=== PATIENT | male | born 1950 | race Caucasian/White ===

== ENCOUNTER 2019-05-28 05:54 | Day surgery (SDC) ==
--- NOTE | 2019-05-19 10:18 | EKG Report ---
Test Performed on : 05/19/2019 10:15:26 AM Test Reason : PAT Blood Pressure : / mmHG Vent. Rate : 074 BPM Atrial Rate : 074 BPM P-R Int : 148 ms QRS Dur : 096 ms QT Int : 398 ms P-R-T Axes : 068 056 054 degrees QTc Int : 441 ms Normal sinus rhythm. Normal ECG No previous ECGs available Confirmed by Luis Enrique Acosta MD ([id number]) on 05/20/2019 6:14:46 PM
[2019-05-19 10:47] LABS: HEMATOCRIT 47.7 % (42.0-52.0); HEMOGLOBIN 16.2 g/dL (14.0-18.0); MCH 32.4 PG (27-31); MCV 95.4 FL (81-99); MPV 9.7 FL (7.4-10.4); RDW 13.3 % (11.5-14.5); WBC 5.32 X1000 (4.8-10.8)
[2019-05-19 10:52] LABS: INR 0.97; PROTIME 12.9 Seconds (11.0-16.0)
[2019-05-19 10:53] LABS: PTT 26.8 Seconds (22.3-41.8)
[2019-05-19 11:08] LABS: AGAP 9; BUN 17 mg/dL (8-22); CALCIUM 9.3 mg/dL (8.8-10.2); CHLORIDE 110 mmol/L (98-107); COSMO 296; ESTIMATED GFR > 60; GLUCOSE 96 mg/dL (70-104); POTASSIUM 4.6 mmol/L (3.5-5.1); SODIUM 148 mmol/L (136-145); TCO2 29 mmol/L (25-35)
--- NOTE | 2019-05-27 20:20 | HISTORY AND PHYSICAL ---
HISTORY OF PRESENT ILLNESS: A 69-year-old male with clinical stage T1c [place] 3 + 3 prostate adenocarcinoma. He had PSA elevation up to 4.3 in 2018 and underwent biopsy in April of 2018, with volume of the prostate recorded at 21 mL. Pathology revealed [place] 6 prostate adenocarcinoma in 2 out of 12 cores in the right mid and right base, up to 90% of cores involved. He originally decided to proceed with active surveillance, but his PSA slowly isabella up to 7.82 on 04/21/2019. He wants to proceed with robotic prostatectomy. He has a history of ED and has had penile implant placed in 2011, which works well. PAST MEDICAL HISTORY: 1. Erectile dysfunction. 2. Prostate cancer. 3. Hyperlipidemia. PAST SURGICAL HISTORY: 1. Hip replacement. 2. Insertion of inflatable penile prosthesis. 3. Rotator cuff repair. HOME MEDICATIONS: 1. Fish oil. 2. Flomax. 3. Lotrisone cream. 4. Simvastatin. 5. Vitamins. ALLERGIES: No known drug allergies. FAMILY HISTORY: Positive for hypertension, coronary artery disease, and diabetes. SOCIAL HISTORY: Former smoker. Denies alcohol or illicit drug use. PHYSICAL EXAMINATION: GENERAL: No acute distress. HEENT: Normocephalic, atraumatic. PULMONARY: Bilateral breath sounds. ABDOMEN: Soft, nontender, nondistended. : Penile shaft with donor foreskin without lesions or masses noted. Testes descended bilaterally. ASSESSMENT: A 69-year-old male with prostate cancer and rising prostate specific antigen, who desires robotic prostatectomy. We discussed alternative to surgery and he feels strongly about the surgery. We discussed risks of robotic-assisted laparoscopic prostatectomy with nerve sparing, and laparoscopic ureteral suspension including, but not limited to, bleeding, infection, injury to the bladder, injury to adjacent structures, inability to remove all the cancer, erectile dysfunction, intermediate frame tender urinary incontinence, and care home complications such as bladder neck contracture which may require additional interventions in the future. He voiced understanding and wants to proceed. PLAN: Robotic-assisted laparoscopic prostatectomy with laparoscopic urethral suspension. cc: Peña Roldan MD
[2019-05-28] MEDS ORDERED: LR 1,000 ML ONE ×2 (06:04→06:30)
[2019-05-28] MEDS ORDERED: KEFZOL 1 GM/D5W 2 GM/100 ML IVPB ONE (06:04)
[2019-05-28] MEDS ORDERED: MARCAINE 0.25% PF ONE (06:30)
[2019-05-28] MEDS ORDERED: QUELICIN (DOSE) ONE (06:35)
[2019-05-28] MEDS ORDERED: XYLOCAINE-MPF 2% ONE (06:35)
[2019-05-28] MEDS ORDERED: NORCURON ONE (06:35)
[2019-05-28] MEDS ORDERED: STERILE WATER INJ. ONE (06:35)
[2019-05-28] MEDS ORDERED: DIPRIVAN 1% ONE (06:37)
[2019-05-28] MEDS ORDERED: FENTANYL ONE ×3 (07:05→09:36)
[2019-05-28] MEDS ORDERED: OFIRMEV 1000 MG/ISOTONIC SOLN 1,000 MG/100 ML BOTTLE ONE (07:43)
[2019-05-28] MEDS ORDERED: ZOFRAN ONE (07:43)
[2019-05-28] MEDS ORDERED: DECADRON ONE (07:43)
[2019-05-28 08:44] LABS: URINE SOURCE CATH
[2019-05-28 08:55] LABS: UR EPITHELIAL CELLS <10 /HPF (<10); URINE BACTERIA NEGATIVE /HPF; URINE RBC TNTC /HPF (<10); URINE WBC TNTC /HPF (<10)
[2019-05-28 08:57] LABS: BILIRUBIN URINE NEGATIVE (NEGATIVE); BLOOD URINE MODERATE (NEGATIVE); COLOR ORANGE; GLUCOSE URINE NEGATIVE (NEGATIVE); KETONE URINE NEGATIVE (NEGATIVE); LEUKOCYTES URINE SMALL (NEGATIVE); NITRITE URINE POSITIVE (NEGATIVE); PH URINE 6.5; PROTEIN URINE TRACE mg/dL (NEGATIVE); SP GRAVITY URINE 1.021; TURBIDITY URINE HAZY (CLEAR); UROBILINOGEN URINE NORMAL (NORMAL)
[2019-05-28] MEDS ORDERED: ROBINUL ONE (09:24)
[2019-05-28] MEDS ORDERED: NEOSTIGMINE ONE (09:26)
[2019-05-28] MEDS ORDERED: B & O 16A SUPP ONE (09:51)
[2019-05-28] MEDS ORDERED: DEMEROL ONE (10:12)
[2019-05-28] MEDS ORDERED: NS 1,000 ML ONE (10:18)
[2019-05-28] MEDS ORDERED: MORPHINE IV PRN (11:14)
[2019-05-28] MEDS ORDERED: ZOFRAN IV PRN (11:15)
[2019-05-28] MEDS ORDERED: BENADRYL IV PRN (11:15)
[2019-05-28] MEDS ORDERED: NORCO-10 PO PRN (11:15)
[2019-05-28] MEDS ORDERED: SODIUM CHLORIDE 0.9% INJ PRN (11:15)
[2019-05-28] MEDS ORDERED: NORCO-5 PO PRN (11:15)
[2019-05-28] MEDS ORDERED: DITROPAN PO PRN (11:15)
[2019-05-28] MEDS ORDERED: NORCO-7.5 PO PRN (11:15)
[2019-05-28] MEDS ORDERED: LABETALOL IV PRN (11:15)
[2019-05-28] MEDS ORDERED: BENADRYL LIQUID PO PRN (11:15)
[2019-05-28] MEDS ORDERED: PHENERGAN IV PRN (11:15)
[2019-05-28] MEDS ORDERED: PHENERGAN PO PRN (11:15)
[2019-05-28] MEDS ORDERED: DILAUDID IV PRN (11:15)
[2019-05-28] MEDS ORDERED: PHENERGAN PR PRN (11:15)
[2019-05-28] MEDS: NS 1,000 ML IV SCH ×3 (13:47→22:04)
[2019-05-28] MEDS ORDERED: OFIRMEV 1000 MG/ISOTONIC SOLN 1,000 MG/100 ML BOTTLE IV PRN (14:00)
[2019-05-28] MEDS: KEFZOL 2 GM/D5W 2 GM/50 ML IVPB IV SCH (17:21)
[2019-05-28] MEDS ORDERED: FLOVENT 110 MICROGM HFA INH PRN (20:07)
[2019-05-28] MEDS ORDERED: VENTOLIN HFA INH PRN (20:07)
[2019-05-28] MEDS ORDERED: LIPITOR PO SCH (21:00)
[2019-05-28] MEDS: COLACE PO SCH (22:01)
[2019-05-28] MEDS: COREG PO SCH (22:04)
[2019-05-28] MEDS: PERIDEX MT SCH (22:04)
[2019-05-29] MEDS: KEFZOL 2 GM/D5W 2 GM/50 ML IVPB IV SCH ×2 (01:58→08:32)
[2019-05-29 03:38] VITALS: BP 128/80
[2019-05-29] MEDS: NS 1,000 ML IV SCH (06:37)
[2019-05-29 07:29] LABS: HEMATOCRIT 41.7 % (42.0-52.0); HEMOGLOBIN 13.6 g/dL (14.0-18.0); MCH 31.3 PG (27-31); MCHC 32.6 g/dL (33-37); MCV 96.1 FL (81-99); MPV 9.6 FL (7.4-10.4); RBC 4.34 XMIL (4.7-6.1); RDW 13.1 % (11.5-14.5); WBC 7.45 X1000 (4.8-10.8)
[2019-05-29 08:01] LABS: AGAP 8; BUN 17 mg/dL (8-22); CALCIUM 8.4 mg/dL (8.8-10.2); CHLORIDE 110 mmol/L (98-107); COSMO 285; ESTIMATED GFR > 60; GLUCOSE 99 mg/dL (70-104); SODIUM 142 mmol/L (136-145); TCO2 24 mmol/L (25-35)
[2019-05-29] MEDS: COLACE PO SCH (08:32)
[2019-05-29] MEDS: COREG PO SCH (08:32)
[2019-05-29] MEDS: PERIDEX MT SCH (08:32)
[2019-05-29] MEDS ORDERED: PATIENT'S OWN MED PO SCH (09:00)
[2019-05-29] MEDS ORDERED: CENTRUM SILVER PO SCH (09:00)
[2019-05-29] MEDS ORDERED: VITAMIN B-12 PO SCH (09:00)
[2019-05-29] MEDS ORDERED: COZAAR PO SCH (09:00)
[2019-05-29] MEDS ORDERED: NORVASC PO SCH (09:00)
--- NOTE | 2019-05-30 15:03 | OPERATIVE NOTE ---
PROCEDURE DATE: 05/28/2019 SURGEON: Dr. Peña Roldan. PREOPERATIVE DIAGNOSES: 1. Elevated prostate-specific antigen. 2. Prostate adenocarcinoma. POSTOPERATIVE DIAGNOSES: 1. Elevated prostate-specific antigen. 2. Prostate adenocarcinoma. PROCEDURE: Robotic-assisted laparoscopic prostatectomy with laparoscopic urethral suspension. INDICATIONS: A 69-year-old male who has been diagnosed with prostate cancer secondary to elevated PSA in 2018. He originally chose to proceed with active surveillance. His PSA isabella from the 4 range to 7, and he now desires to undergo a robotic prostatectomy. He has had radiation in the past secondary to back fracture. He has also had several pelvic infections after hip arthroplasty including the need to get extensive IV antibiotics and antibiotic beads. FINDINGS: He had extremely adhesive tissues and inflamed tissues in his entire pelvis which made it extremely difficult to isolate the prostate. Watertight vesicourethral anastomosis at 240 mL. DESCRIPTION OF PROCEDURE: After obtaining informed consent, patient was brought to the operating room. Perioperative antibiotics and general endotracheal anesthesia were administered. He was placed in the lithotomy position, prepped and draped in sterile fashion. He has a penile implant, and it was deflated followed by introduction of 18-Nauruan Parra catheter. It would not go easily, and I switched to an 18-Nauruan Coude Parra catheter. Clear urine was returned. 10 mL of sterile water was instilled into the bulb. We then made a small stab incision in his umbilicus, and introduced Veress needle and connected to saline-filled syringe. We confirmed positive drop test followed by aspiration of fluid in the syringe without evidence of blood or GI contents. We then insufflated his pneumoperitoneal pressure to 15 mmHg. This was followed by demarcation of the trocar sites in the standard prostatectomy fashion. Next, 10 mL of 0.25% plain Marcaine were used to anesthetize the trocar sites. This was followed by Bovie electrocautery incision of the skin, and placement of a 12 mm camera trocar followed by insertion of the robotic camera. His pelvic and abdominal cavity were inspected. He did not have significant adhesions. The rest of the trocars were placed under direct vision. He was then placed in steep Trendelenburg position, and the robot was docked. We began by incising his peritoneum approximately 3 cm above the rectum, and identified and isolated and transected the right vas deferens. This was followed by identification and isolation of the right seminal vesicle. I used judicious cautery posterolaterally in order to preserve the neurovascular bundles. We then performed the same thing on the left side. He had very again inflamed and adherent Denonvilliers' fascia, but I was eventually able to develop the presacral space. Attention was then turned to taking down his bladder. His right medial umbilical ligament was somewhat defined. His left medial umbilical ligament was very atrophic appearing. I incised lateral to each medial umbilical ligament which allowed us to drop the bladder again instead of easily the fatty tissue. There were quite a bit of adhesions. I meticulously dissected the bladder and accessed the space of Retzius. On the patient's left side, the reservoir could be seen, and I took care in order to preserve its integrity. Ultimately, we were able to get to the endopelvic fascia which was incised laterally with cold scissors. The contour of the prostate was followed up to its apex. The superficial dorsal venous complex was secured with bipolar electrocautery. Deep dorsal venous complex was secured with 0 V-Loc suture in a bnfrtj-tz-suyln fashion. Puboprostatic ligaments were divided sharply. Attention was then turned to the divided bladder neck. Gentle tugging of the Parra helped us identify the level of bladder neck. This was followed by monopolar cautery through the perivesical tissue and eventually bladder neck to the view. Parra was seen and brought into the field and placed in anterior traction. The bladder neck was dissected circumferentially. We then developed the plane between the prostate and the bladder until vas deferens came into the view. Those were brought out onto the field, and placed in anterior traction. Seminal vesicles were brought out as well. Attention was turned to the right side away from the reservoir and the neurovascular bundles were reflected using Hem O Jass clips. We then dissected posteriorly between the prostate and the rectum. We then carefully reflected neurovascular bundles on the left side using Hem O Jass clips posterolaterally. Eventually, the prostate was free with exception to its apical attachments. Bovie electrocautery was used to cut through the apical attachments, and I performed a partial urethral length given that he did not have any cancer at the apex and biopsy. The prostate was ultimately delivered and placed into EndoCatch bag. The field was irrigated. Decreased pneumoperitoneal pressure showed no evidence of active bleeding. Attention was then turned to Alcon stitch. Three 0 V-Loc suture was used to reapproximate the perivesical and periurethral tissue. We made sure that the needles were away from the reservoir at all times. Those sutures were preserved for future laparoscopic suspension. This was followed by a formal vesicourethral anastomosis with a 3 V-Loc suture in a clockwise and counterclockwise fashion eventually cross-tying the sutures. A fresh 18-Nauruan Parra catheter was introduced with 15 mL in the balloon, and the anastomosis was tested with 240 mL of sterile fluid instilled. There was no evidence of anastomotic leakage. We then performed laparoscopic urethral suspension by using previously placed Alcon sutures and threading them through the periosteum lateral to the midline pubic symphysis. The urethra appeared to suspend nicely. We decreased pneumoperitoneal pressure to 3 mm once again. There was no evidence of active bleeding. The robot was undocked. The supraumbilical incision was extended, and the prostate was delivered. Wound was copiously irrigated. A #1 Maxon suture was used to close the fascia in a running fashion in the supraumbilical wound. A 0 Vicryl suture was used in a miftqm-yh-jdune fashion to close the fascia of the showroom sales assistant trocar site. The wounds were irrigated, and a 4-0 Monocryl suture was used for subcuticular closure followed by application of Covidien adhesive age. He was then extubated and taken to PACU for further recovery after B O suppository was administered. ESTIMATED BLOOD LOSS: 100 mL. COMPLICATIONS: None. SPECIMENS: Labeled as prostate gland. DRAINS: 18-Nauruan Parra catheter. DISPOSITION: To PACU and subsequently to the floor for observation with Parra catheter to gravity drainage. cc: Peña Roldan MD
== END 2019-05-29 09:40 | disposition home or self-care (01) ==
LOC: 4N 05:54 → OR 05:54
PROVIDERS: ATTEND Urology

== ENCOUNTER 2019-06-29 08:26 | Inpatient (IN) ==
[2019-06-29] MEDS ORDERED: NS 1,000 ML IV ONE ×2 (09:19→13:14)
--- NOTE | 2019-06-29 09:40 | Diag Imaging Result Doc PS360 ---
EXAM: CHEST-1 VIEW - 06/29/2019 HISTORY: sepsis protocol, + chills TECHNIQUE: Portable chest one view COMPARISON: None. FINDINGS: Heart size is normal. There is mild prominence of interstitial markings. There is no consolidation, pleural effusion, or pneumothorax identified. IMPRESSION: Nonspecific mild interstitial marking prominence. No discrete pneumonia. Electronically signed by Eber Ortega 06/29/2019 9:38 AM
[2019-06-29 10:02] LABS: URINE SOURCE CLEAN CATCH
[2019-06-29 10:03] LABS: BASO# 0.02 X1000 (0.0-0.2); BASO% 0.2 % (0.0-0.8); EOS# 0.18 X1000 (0.0-0.7); HEMATOCRIT 51.6 % (42.0-52.0); IMM GRAN# 0.02 X1000 (0.0-0.04); IMM GRAN% 0.2 % (0.0-0.5); LYMPH# 0.91 X1000 (1.2-3.4); LYMPH% 10.2 % (20.5-51.1); MCH 30.9 PG (27-31); MCHC 32.9 g/dL (33-37); MCV 93.6 FL (81-99); MONO# 0.25 X1000 (0.11-0.59); MONO% 2.8 % (1.7-9.3); NEUT# 7.53 X1000 (1.4-6.5); NEUT% 84.6 % (42.2-75.2); PLT 158 X1000 (130-400); RBC 5.51 XMIL (4.7-6.1); RDW 12.7 % (11.5-14.5); WBC 8.91 X1000 (4.8-10.8)
--- NOTE | 2019-06-29 10:08 | PROVIDER DOCUMENTATION ---
HPI-General Adult - General Chief Complaint: Fatigue Stated Complaint: CHILLS, BACK PAIN Time Seen by Provider: 06/29/19 08:59 Source: patient Allergies/Adverse Reactions: Patient Allergies Allergy/AdvReac Type Severity Reaction Status Date / Time silk Allergy REMOVES Verified 05/28/19 05:56 SKIN Home Medications: Home Medication List Medication Instructions Recorded Confirmed Last Taken Type Albuterol Sulfate [Proair 1 puff INH PRN PRN 05/19/19 05/28/19 Unknown History Respiclick] Amlodipine [Norvasc] 5 mg PO DAILY 05/19/19 05/19/19 05/27/19 History Atorvastatin Calcium [Lipitor] 20 mg PO DAILY 05/19/19 05/19/19 05/27/19 History Carvedilol 6.25 mg PO BID 05/19/19 05/28/19 05/28/19 04:45 History Cyanocobalamin [Vitamin B-12] 100 mcg PO DAILY 05/19/19 05/19/19 05/27/19 History Fluticasone Propionate 110 INH 1 puff INH PRN PRN 05/19/19 05/28/19 05/28/19 04:45 History [Flovent 110 Microgm Hfa] Glucosamine/D3/Boswellia Opal 1 dose PO DAILY 05/19/19 05/19/19 05/27/19 History [Osteo Bi-Flex Tablet] Losartan Potassium 100 mg PO DAILY 05/19/19 05/19/19 05/27/19 History Multivit-Min/FA/Lycopen/Lutein 1 tab PO DAILY 05/19/19 05/19/19 Unknown History [Centrum Silver Tablet] CephALEXIN [Keflex] 250 mg PO BID #6 cap 05/29/19 Unknown Rx Hydrocodone/Acetaminophen [[place] 1 ea PO TID PRN #10 tab 05/29/19 Unknown Rx 7.5-325 Tablet] Oxybutynin [Ditropan] 5 mg PO TID PRN #15 tab 05/29/19 Unknown Rx - History of Present Illness -Gen Adult Nature of Presenting Problems: Patient is a 69 yom who c/o lower back pain and fatigue x 1 week and chills that began yesterday. Reports prostatectomy due to prostate cancer on 05/28/[address] Roldan. Not on radiation or chemotherapy. States he started Bactrim last week for abdominal cellulitis at his surgical wounds and did not complete it because he did not like the way it made him feel. Has been on Macrobidfor a UTI x 4 days. Denies any other complaints. Review of Systems - Adult - REVIEW OF SYSTEMS - ADULT Constitutional: reports: see HPI, chills Eyes: reports: no symptoms reported Ears, Nose, Mouth & Throat: reports: no symptoms reported Cardiovascular: reports: no symptoms reported Respiratory: reports: no symptoms reported Gastrointestinal: reports: no symptoms reported Genitourinary: reports: see HPI Musculoskeletal: reports: see HPI, back pain Integumentary: reports: see HPI Neurological: reports: no symptoms reported Psychiatric: reports: no symptoms reported Endocrine: reports: no symptoms reported Hematologic/Lymphatic: reports: no symptoms reported Allergic/Immunologic: reports: no symptoms reported All Other Systems: Reviewed and Negative Past History - Adult - PAST MEDICAL HISTORY-ADULT Review of Records: reports: Old Records Reviewed, Nursing Assessment Review, Medications Reviewed, Social history reviewed & non-contributory. Major Childhood Illnesses: reports: denies history Cardiovascular: reports: denies history Respiratory: reports: denies history Gastrointestinal: reports: denies history Genitourinary: reports: cancer (prostate) Musculoskeletal: reports: denies history Neurological: reports: denies history Psychiatric: reports: denies history Endocrine/Immune: reports: denies history Other Conditions: reports: denies history - PRIOR SURGERIES/PROCEDURES Surgical/Procedure History: reports: recent surgery - FAMILY HISTORY Family History: reviewed, not pertinent - SOCIAL HISTORY Smoking: non-smoker Physical Exam-General - PHYSICAL EXAM-ADULT Initial Vital Signs Reviewed: Yes - CONSTITUTIONAL General Appearance: alert, no apparent distress, other (pt shivering during exam). negative: lethargic, slow to respond - EYES Eyes: PERRL/EOMI, pink conjunctivae - HEAD, EARS, NOSE, MOUTH & THROAT HENMT: normocephalic/atraumatic, moist mucous membranes, normal ENT inspection - NECK Neck: full range of motion, supple, normal inspection - RESPIRATORY Respiratory: chest non-tender, lungs clear, normal breath sounds, no pleuratic chest pain, no respiratory distress, no accessory muscle use - CARDIOVASCULAR Cardiovascular: normal peripheral pulses, regular rate, rhythm, no gallop, no murmur - GASTROINTESTINAL (ABDOMEN) Abdominal Exam: normal bowel sounds, non tender, distended. negative: guarding, tenderness - MUSCULOSKELETAL Back Exam: normal inspection, no CVA tenderness Extremity: normal range of motion, non-tender, normal inspection - SKIN Integumentary: normal color, warm/dry, other (3 abdominal incisions noted with mild surrounding erythema surrounding each incision. No exudate.). negative: cyanosis, diaphoresis, jaundice, mottled, pallor - NEUROLOGIC Neurologic: grossly normal, no motor/sensory deficits - PSYCHIATRIC Psych/Mental Status: normal mood/affect, normal thought content, normal thought process, oriented x 3 Progress - PLAN OF CARE/RESULTS Progress/Plan/Lab Results: Vital Signs - 8 hr 06/29/19 08:28 Temperature 98.3 F Pulse Rate 103 H Respiratory Rate 18 Blood Pressure 167/99 O2 Sat by Pulse Oximetry 93 L 06/29/19 08:30 Influenza Screen - Final Nasopharyngeal Laboratory Results - last 24 hr 06/29/19 09:43 Urine Source CLEAN CATCH Orders Category Date Time Status Cardiac Monitoring DIRECTED Care 06/29/19 09:17 Active IV Insertion ORDERED Care 06/29/19 09:17 Completed Notify MD of + Sepsis Screen NOW Care 06/29/19 09:17 Active Notify Physician As Ordered Care 06/29/19 09:17 Active CHEST-1 VIEW [RAD] Stat Exams 06/29/19 09:[address] ABD/PELVIS W/IV CONT ONLY [CT] Stat Exams 06/29/19 09:18 Ordered BLOOD CULTURE [BLDCUL] Stat Lab 06/29/19 09:17 Uncollected CBC WITH DIFF [HEME] Stat Lab 06/29/19 09:45 Results CK PROFILE [SP CHEM] Stat Lab 06/29/19 09:45 Received COMPREHENSIVE METABOLIC PANEL [CHEM] Stat Lab 06/29/19 09:45 Received INFLUENZA SCREEN A/B Stat Lab 06/29/19 08:30 Completed LACTATE, PLASMA [CHEM] Lab 06/29/19 09:45 Received LACTATE, PLASMA [CHEM] Lab 06/29/19 12:30 Uncollected LACTATE, PLASMA [CHEM] Lab 06/29/19 15:30 Uncollected MAGNESIUM [CHEM] Stat Lab 06/29/19 09:45 Received PROTIME WITH INR [COAG] Stat Lab 06/29/19 09:45 Received PTT [COAG] Stat Lab 06/29/19 09:45 Received TROPONIN T HIGH SENSITIVITY Stat Lab 06/29/19 09:45 Received URINALYSIS W/POSS RFLX CULT [URINALYSIS] Stat Lab 06/29/19 09:43 Results 0.9% Sodium Chloride Inj [Ns] 1,000 ml Med 06/29/19 09:19 Active IV 999 mls/hr Oxygen Device Stat Oth 06/29/19 09:17 Active Result Diagrams: 06/29/19 09:45 06/29/19 09:45 - REASSESSMENT Reassessment #1 Time Reassessed: 12:52 Status: improving (Pt feeling better, he is in agreement with admit decision.) - XRAY 1 XRAY Study: Chest ([facility] - [address] [facility] [address] [facility], [address], [place] [address] [facility] - [address] [place] [address] Department of Imaging Patient: JESICA BUTTERFIELDDM Date: 06/29/19#: [id number] : 1950DM Status: REG [facility]#: [id number] Age/Sex: 69/MRoom/Bed: Loc: ED Ordering Physician: Dee Ventura Family Physician: Katlyn York Reason for Procedure: sepsis protocol, + chills Signed EXAM: CHEST-1 VIEW - 06/29/2019 HISTORY: sepsis protocol, + chills TECHNIQUE: Portable chest one view COMPARISON: None. FINDINGS: Heart size is normal. There is mild prominence of interstitial markings. There is no consolidation, pleural effusion, or pneumothorax identified. IMPRESSION: Nonspecific mild interstitial marking prominence. No discrete pneumonia. Electronically signed by Eber Ortega 06/29/2019 9:38 AM 06/29/19 0938 Interpreting Physician: Eber Ortega MD Dictated Date/Time: 06/29/19 0937 cc: Dee Ventura; Katlyn York) - CT/MRI 1 CT Study: Abdomen, Pelvis ([facility] - [address], [address], [place] [address] [facility] - [address] , [place] [address] Department of Imaging Patient: JESICA BUTTERFIELDDM Date: 06/29/19MR#: [id number] : 1950DM Status: REG [facility]#: [id number] Age/Sex: 69/MRoom/Bed: Loc: ED Ordering Physician: Dee Ventura Family Physician: aKtlyn York Reason for Procedure: recent abd sx, distention, incisional erythema ___ Signed EXAM: CT ABD/PELVIS W/IV CONT ONLY - 06/29/2019 HISTORY: recent abd sx, distention, incisional erythema TECHNIQUE: CT abdomen/pelvis with intravenous contrast COMPARISON: None. FINDINGS: There are two hepatic cysts which measure 2.2 cm and 0.8 cm, respectively. There are no other substantial abnormalities of the liver, spleen, adrenal glands, or pancreas identified. There are no calcified gallstones or pericholecystic inflammation identified. There are right renal cysts, largest of which arises from the lower kidney and measures 9.4 cm. There are small left renal cysts. There is an 11 mm stone in the right renal pelvis. There is no substantial right hydronephrosis. There is an 11 mm stone at the left ureteropelvic junction. There is moderate left hydronephrosis. There are nonspecific small retroperitoneal lymph nodes. There are no substantially enlarged lymph nodes identified. There are lumbar spine degenerative changes noted. There is no evidence of bowel obstruction. There is colonic diverticulosis. There is no evidence of diverticulitis. There is no free air, substantial free fluid, or abscess identified. There are streak artifacts from metallic hip prosthesis which substantially limit detail at the pelvis. There is reservoir of penile prosthesis at the left pelvis. There is no discrete pelvic mass or abnormal fluid collection identified. IMPRESSION: 11 mm stone in right renal pelvis. No substantial right hydronephrosis. 11 mm stone at left ureteropelvic junction, with moderate left hydronephrosis. Colonic diverticulosis. No evidence of diverticulitis. This exam was performed using automated exposure control, adjustment of mA or kV according to patient size, and/or use of iterative reconstruction technique. Electronically signed by Eber Ortega 06/29/2019 11:59 AM 06/29/19 1159 Interpreting Physician: Eber Ortega MD Dictated Date/Time: 06/29/19 1151 cc: Dee Ventura; Katlyn York) - CONSULTS/PCP/HOSPITALIST Notification #1 *Consult/PCP/Hospitalist*: CIELO Bowden ANCILLARY SERVICES MANAGER Time Discussed: 12:49 Reason/Comments: admission- kidney stones, UTI, fever, renal insufficiency Consult Disposition: Admit ([facility] accepted admit, requests that I place urology consult.) #2 Consult: Dr. Rosairo Time Discussed: 12:52 Reason/Comments: kidney stones, renal insufficiency, fever, UTI Consult Disposition: Admit (States to admit to [facility] and consult him) Departure - Departure Date of Disposition Decision: 06/29/19 Time of Disposition Decision: 12:49 DIAGNOSIS: Hepatic cyst, Kidney stones, Renal cyst, Renal insufficiency Disposition: ADMITTED INPATIENT 09 Certified Medical Emergency: Emergent Condition: Stable Referrals and Follow-Ups: Katlyn York [Primary Care Provider] - - Critical Care Note This patient required my direct & personal management of CC.: No Attestation - Physician/ CHIKA Attestation Patient care was provided by Advanced Practice Provider:: Yes Advanced Practice Provider:: Dee Ventura Advanced Practice Provider documentation review:: The Mid-level provider documentation, treatment plan and medical decision making was reviewed by the physician who agrees with all treatment and medical decision making by the P. The physician spent face to face time with patient:: No Advanced Practice Provider documentation review:: Supervising physician onsite and consulted in the evaluation and care of this patient. The physician did not have a face to face encounter with the patient.
[2019-06-29 10:12] LABS: BILIRUBIN URINE NEGATIVE (NEGATIVE); BLOOD URINE MODERATE (NEGATIVE); COLOR YELLOW; GLUCOSE URINE NEGATIVE (NEGATIVE); KETONE URINE TRACE mg/dL (NEGATIVE); LEUKOCYTES URINE MODERATE (NEGATIVE); NITRITE URINE NEGATIVE (NEGATIVE); PROTEIN URINE 100 mg/dL (NEGATIVE); SP GRAVITY URINE 1.029; TURBIDITY URINE HAZY (CLEAR); UROBILINOGEN URINE 2 mg/dL (NORMAL)
[2019-06-29 10:13] LABS: UR EPITHELIAL CELLS <10 /HPF (<10); URINE BACTERIA 1+ /HPF; URINE RBC TNTC /HPF (<10); URINE WBC TNTC /HPF (<10)
[2019-06-29 10:31] LABS: INR 1.04; PROTIME 13.7 Seconds (11.0-16.0); PTT 24.9 Seconds (22.3-41.8)
[2019-06-29] MEDS ORDERED: ROCEPHIN 2 GM in NS 50 ML IV ONE (10:42)
[2019-06-29 10:43] LABS: ALB/GLOB RATIO 1.5; ALBUMIN 4.7 g/dL (3.5-5.0); CALCIUM 9.9 mg/dL (8.8-10.2); CREATININE 1.6 mg/dL (0.7-1.2); MAGNESIUM 2.2 mg/dL (1.5-2.7); POTASSIUM 5.1 mmol/L (3.5-5.1); TOTAL BILIRUBIN 1.02 mg/dL (0.20-1.00); TOTAL PROTEIN 7.9 g/dL (6.3-8.3)
[2019-06-29 11:08] LABS: CK INDEX 1.1 (0.0-2.5); CK-MB 2.26 ng/mL (0.0-5.0)
[2019-06-29] MEDS ORDERED: TYLENOL PO ONE (11:38)
--- NOTE | 2019-06-29 12:02 | Diag Imaging Result Doc PS360 ---
EXAM: CT ABD/PELVIS W/IV CONT ONLY - 06/29/2019 HISTORY: recent abd sx, distention, incisional erythema TECHNIQUE: CT abdomen/pelvis with intravenous contrast COMPARISON: None. FINDINGS: There are two hepatic cysts which measure 2.2 cm and 0.8 cm, respectively. There are no other substantial abnormalities of the liver, spleen, adrenal glands, or pancreas identified. There are no calcified gallstones or pericholecystic inflammation identified. There are right renal cysts, largest of which arises from the lower kidney and measures 9.4 cm. There are small left renal cysts. There is an 11 mm stone in the right renal pelvis. There is no substantial right hydronephrosis. There is an 11 mm stone at the left ureteropelvic junction. There is moderate left hydronephrosis. There are nonspecific small retroperitoneal lymph nodes. There are no substantially enlarged lymph nodes identified. There are lumbar spine degenerative changes noted. There is no evidence of bowel obstruction. There is colonic diverticulosis. There is no evidence of diverticulitis. There is no free air, substantial free fluid, or abscess identified. There are streak artifacts from metallic hip prosthesis which substantially limit detail at the pelvis. There is reservoir of penile prosthesis at the left pelvis. There is no discrete pelvic mass or abnormal fluid collection identified. IMPRESSION: 11 mm stone in right renal pelvis. No substantial right hydronephrosis. 11 mm stone at left ureteropelvic junction, with moderate left hydronephrosis. Colonic diverticulosis. No evidence of diverticulitis. This exam was performed using automated exposure control, adjustment of mA or kV according to patient size, and/or use of iterative reconstruction technique. Electronically signed by Eber Ortega 06/29/2019 11:59 AM
[2019-06-29] MEDS ORDERED: DIPRIVAN 1% ONE (14:06)
[2019-06-29] MEDS ORDERED: SUFENTA ONE (14:12)
[2019-06-29] MEDS ORDERED: GENTAMICIN 100 MG/NS 100 MG/100 ML IVPB ONE (14:23)
[2019-06-29] MEDS ORDERED: MORPHINE IV PRN (15:03)
[2019-06-29] MEDS ORDERED: ZOFRAN IV PRN (15:03)
[2019-06-29] MEDS ORDERED: TYLENOL PO PRN (15:03)
[2019-06-29] MEDS ORDERED: NS 1,000 ML ONE (15:28)
--- NOTE | 2019-06-29 15:34 | HISTORY AND PHYSICAL ---
PRIMARY CARE PROVIDER: Katlyn York. UROLOGIST: Dr. Roldan . CHIEF COMPLAINT: Kidneys hurting, chills and fever. HISTORY OF PRESENT ILLNESS: Mr. Ace is a 69-year-old gentleman who carries a past medical history of prostate cancer status post prostatectomy with Dr. Roldan, recent urinary tract infection initially on Bactrim switched to Macrodantin based off of microbiology as Staph epidermidis , erectile dysfunction status post inflatable penile prosthesis in 2011, hyperlipidemia, hypertension, COPD, quit smoking 30 years ago, came to the ED complaining of kidneys hurting, chills and fever. Workup in the ED revealed right and left 11 mm stones, 1 in the right renal pelvis with no substantial right hydronephrosis and a left ureteropelvic junction with moderate left hydronephrosis, white count, acute kidney injury with a creatinine of 1.6, initially afebrile, 3 hours later he spiked a temperature of 102.4 degrees, sepsis workup was done. He has had 2 negative lactates. His urinalysis does show 1+ bacteria, too numerous to count RBCs, too numerous to count WBCs, moderate leukocytes, moderate blood. He was given 1 L fluid bolus, 1000 mg of Tylenol and 2 g of IV Rocephin. Blood cultures were drawn, awaiting urine culture. Dr. Rosario came in to examine the patient and will be taking him to surgery within the hour. He did his full exam and will examine his prostate where he has prostate surgery under anesthesia. Will continue with further recommendations and treatment per urology. PAST MEDICAL HISTORY: ED, prostate cancer status post prostatectomy, hyperlipidemia, hypertension, COPD. PAST SURGICAL HISTORY: Hip replacement, penile prosthesis, rotator cuff repair, prostatectomy. HOME MEDICATIONS: Are being compiled however the list he showed me shows Lipitor, Coreg, Norvasc, losartan, inhalers. ALLERGIES: To silk tape. FAMILY HISTORY: Positive for hypertension, coronary artery disease and diabetes. SOCIAL HISTORY: Former smoker 30 years ago. Denies any alcohol or illicit drug use. He is , and children are at bedside. PHYSICAL EXAM: VITAL SIGNS: Initial temperature 98.3 degrees, heart rate 103, respiration 18, blood pressure 167/99, 93% on room air, at 11:30 spiked a temperature of 102.4 degrees. GENERAL: Mr. Ace is a 69-year-old gentleman who is sitting up in the bed in no acute distress. HEENT: Atraumatic, normocephalic. PERRL. NECK: Supple, trachea midline. CARDIOVASCULAR: S1, S2 appreciated. No murmurs, gallops, rubs noted. RESPIRATORY: Lung sounds clear bilaterally. GI: Soft, nontender, nondistended, positive bowel sounds 4 quads. : Was assessed per Dr. Rosario. SKIN: Warm, dry and intact. Radial pulses are bounding, pedal pulses are not assessed, patient had tennis shoes on laced up. DIAGNOSTIC DATA: Abdomen and pelvis CT 11 mm stone in the right renal pelvis with no substantial right hydronephrosis, 11 mm stone at the left ureteropelvic junction with moderate left hydronephrosis. Chest x-ray, nonspecific mild interstitial marking prominence, no discrete pneumonia. LABORATORY DATA: White count 8, hemoglobin and hematocrit 17 and 51, platelet count is 158,000. Sodium 138, potassium 5.1, BUN 27, creatinine 1.6, blood glucose 110, T bilirubin 1.02, AST 38, CK 213, lactate is 1.8, 2nd is 0.9. Urinalysis 1+ bacteria, too numerous to count RBCs, WBCs, moderate leukocytes, moderate blood, micro on his urine from May 2019 grew out Staph epidermidis most susceptible to gentamicin, vancomycin. ASSESSMENT AND PLAN: 1. 11 mm stone in the right renal pelvis with no substantial right hydronephrosis, 11 mm stone at the left ureteropelvic junction with moderate left hydronephrosis. Dr. Rosario has assessed the patient and he will be taking him to the OR for procedure. Patient will remain NPO. 2. Urinary tract infection. Last culture showed Staph epidermidis, he had been on Macrodantin most susceptible to gentamicin and vancomycin, given his kidney function we will treat him with daptomycin q.48 hours, continue to aggressively hydrate him, recheck his renal function in the a.m. 3. Acute kidney injury secondary to bilateral kidney stones. Will reassess in the a.m. 4. Prostate cancer status post prostatectomy a little over a month ago by Dr. Roldan. Dr. Rosario stated that he will assess anything under anesthesia. 5. Hyperlipidemia. 6. Hypertension stable. 7. Chronic obstructive pulmonary disease not in exacerbation. 8. Fevers secondary to urinary tract infection, hydronephrosis, continue with IV antibiotics and symptomatic treatment. 9. Further recommendation to follow physician evaluation, laboratory diagnostic data. Dictated by MICHAEL Beasley for Meaghan Mahmood MD cc: Katlyn GRAHAM
[2019-06-29] MEDS ORDERED: CUBICIN 600 MG in NS 100 ML IV SCH (16:00)
[2019-06-29] MEDS ORDERED: DITROPAN PO PRN ×2 (16:11→17:26)
[2019-06-29] MEDS: MAXIPIME 1 GM in NS 50 ML IV SCH ×2 (16:55→17:12)
--- NOTE | 2019-06-29 17:15 | CONSULTATION ---
DATE OF CONSULTATION: 06/29/2019 ATTENDING AND REFERRING PHYSICIAN: Hospitalist. HISTORY OF PRESENT ILLNESS: This 69-year-old male developed severe bilateral flank pain. He states the right side stopped hurting but then the left side became more severe. He was seen in the emergency room where a CT stone search revealed mild dilation of the right side with a 11 mm stone in the right renal pelvis and a 10 mm obstructing stone at the left ureteropelvic junction with hydronephrosis. No other stones are noted. He is status post radical prostatectomy. The patient states it has never occurred before. He states he is feeling somewhat better after pain medication he was given in the emergency room. PAST MEDICAL HISTORY: Prostate cancer, elevated cholesterol, erectile dysfunction. CURRENT MEDICATIONS: Documented on the chart. PAST SURGICAL HISTORY: Prostate biopsy, laparoscopic robot-assisted radical retropubic prostatectomy in May 2019, IPP placement in 2011, rotator cuff surgery, history of pelvic fractures and reconstruction. SOCIAL HISTORY: No tobacco or alcohol use. ALLERGIES: He is allergic to silk. REVIEW OF SYSTEMS: He denies any pulmonary, cardiac or bowel problems. He has no history of diabetes, strokes or seizures. PHYSICAL EXAMINATION: General: A mildly obese, age apparent, normally developed, white male, oriented in all ways and cooperative. HEENT: Normal for age. Lungs: Clear. Cardiovascular: Regular rate and rhythm. Abdomen: Protuberant, mild left CVA tenderness, right side normal. No hepatosplenomegaly or masses. Normal bowel sounds. : Uncircumcised male with IPP in place. Pump control in good position in the scrotum. Both testes are palpably normal. Extremities: No clubbing, cyanosis, or edema. Neuro: No focal deficits. CT stone search is as noted in the HPI. LABORATORY EVALUATION: He has a white count of 8.91, hemoglobin 17, hematocrit 51.6 and platelets are 158,000. Serum electrolytes are normal. BUN 27, creatinine 1.6. His baseline creatinine is 1. IMPRESSION: 1. Bilateral renal pelvic stones. 2. History of urinary tract infection. 3. Acute onset of renal insufficiency. PLAN: Cystoscopic exam and place bilateral double-J stents. Will need extracorporeal shockwave lithotripsy at a different time. The planned procedure, benefits versus risks, possible complications, including, but not limited to, bleeding, infection, not being able to place the stents, need for further stone surgery was discussed. He seems to understand and desires to proceed. cc: Williams Rosario MD
--- NOTE | 2019-06-29 18:19 | OPERATIVE NOTE ---
PROCEDURE DATE: 06/29/2019 SURGEON: Williams Rosario MD. PREOPERATIVE DIAGNOSIS: Bilateral flank pain with bilateral renal pelvic stones. POSTOPERATIVE DIAGNOSIS: Bilateral flank pain with bilateral renal pelvic stones. PROCEDURE PERFORMED: Cystoscopic exam, placed bilateral double-J stents. ANESTHESIA: General endotracheal. FINDINGS: Cystoscopic exam: Urethra-greater than 21-Nepalese without stricture with inflatable penile implant in place. Prostate - surgically absent. Bladder - normal ureteral orifices bilaterally. No papillary lesions. No trabeculations. No diverticula. Rectal exam reveals a surgically absent prostate. Fluoroscopic exam reveals a left-sided nephrogram with contrast behind and obstructing left ureteral pelvic junction stone. After a wire was pushed past the stone, a large amount of very cloudy efflux came out of the ureter. Some of this was caught and sent to Pathology for culture. There was no nephrogram on the right side, but it does appear there is a stone in the area of the ureteropelvic junction. INDICATION FOR PROCEDURE: This 69-year-old male with history of prostate cancer status post radical retropubic prostatectomy and erectile dysfunction with placement of an inflatable penile implant developed severe bilateral flank pains. The pain on the right got better, but the left the got worse. He was seen in the emergency room where a CT stone search revealed bilateral renal pelvic stones with hydronephrosis. DESCRIPTION OF PROCEDURE: After informed consent was obtained from the patient and him receiving IV antibiotics, he was taken to the main OR cystoscopy room and placed in the supine position. General anesthesia via laryngeal mask was achieved. He was then placed in the low lithotomy position and prepped and draped in the usual sterile fashion for cystoscopic exam. A 21-Nepalese cystoscope was passed through the patient's urethra and into the bladder with findings as noted above. A 0.035 ZIPwire was passed through the cystoscope and engaged the left ureteral orifice and advanced up into the kidney. After the wire was placed, a large amount of cloudy efflux came out and filled the bladder. A portion of this was removed and sent to Pathology for culture and sensitivities. A 6-Nepalese, 26 cm double-J stent was passed over the ZIPwire and up into the kidney. The renal end was verified by fluoroscopic exam, bladder and directly visualized. Stent removal string was removed. The right side was accomplished similarly, however, and no cloudy efflux came out of the right side after the wire was placed. A 6-Nepalese, 26 cm double-J stent was placed on the right side. Stent removal string was removed. The bladder was drained. Cystoscope was removed. Rectal exam performed. Tolerated the procedure well. Estimated blood loss was 0. He was taken to the recovery room in good condition. cc: Williams Rosario MD
[2019-06-29] MEDS: COREG PO SCH (20:10)
[2019-06-30] MEDS: PRILOSEC PO SCH ×2 (05:43→06:24)
[2019-06-30] MEDS: MAXIPIME 1 GM in NS 50 ML IV SCH ×2 (05:43→17:08)
[2019-06-30] MEDS: NS 1,000 ML IV SCH ×4 (05:46→21:36)
[2019-06-30 07:00] LABS: BASO# 0.01 X1000 (0.0-0.2); BASO% 0.1 % (0.0-0.8); HEMATOCRIT 40.2 % (42.0-52.0); HEMOGLOBIN 13.2 g/dL (14.0-18.0); IMM GRAN# 0.02 X1000 (0.0-0.04); IMM GRAN% 0.2 % (0.0-0.5); LYMPH# 0.86 X1000 (1.2-3.4); LYMPH% 7.5 % (20.5-51.1); MCH 30.9 PG (27-31); MCHC 32.8 g/dL (33-37); MCV 94.1 FL (81-99); MONO# 1.06 X1000 (0.11-0.59); MONO% 9.3 % (1.7-9.3); MPV 9.9 FL (7.4-10.4); NEUT# 9.48 X1000 (1.4-6.5); NEUT% 82.9 % (42.2-75.2); PLT 130 X1000 (130-400); RBC 4.27 XMIL (4.7-6.1); RDW 12.4 % (11.5-14.5); WBC 11.43 X1000 (4.8-10.8)
[2019-06-30 07:23] LABS: ALB/GLOB RATIO 1.1; ALBUMIN 3.3 g/dL (3.5-5.0); CALCIUM 8.5 mg/dL (8.8-10.2); CREATININE 1.3 mg/dL (0.7-1.2); POTASSIUM 4.1 mmol/L (3.5-5.1); TOTAL BILIRUBIN 0.34 mg/dL (0.20-1.00); TOTAL PROTEIN 6.3 g/dL (6.3-8.3)
[2019-06-30] MEDS: COREG PO SCH ×3 (07:55→21:37)
--- NOTE | 2019-06-30 08:07 | Diag Imaging Result Doc PS360 ---
FLUROSCOPY CYSTO - 06/29/2019 INDICATION: bilateral ureteral stent placement TECHNIQUE: Fluoroscopy and multiple views of the abdomen. The exam was performed by the patient's urologist. Total fluoroscopy time was 10 seconds. Six images were obtained. COMPARISON: CT from 06/29/2019 FINDINGS: There are bilateral large stones. On the right side this is in the renal pelvis area on the left side this is at the ureteropelvic junction. There is clearly hydronephrosis on the left side as there is visible contrast in the distended renal collecting system. Bilateral nephroureteral stents were placed in good position. It appears that the left UPJ stone was removed or dislodged. IMPRESSION: No complication. Electronically signed by Chema Bach 06/30/2019 8:05 AM
--- NOTE | 2019-06-30 15:32 | PROGRESS NOTE ---
DATE: 06/30/2019 SUBJECTIVE: The patient is sitting up in bed. He states he feels much better today since he had his urologic procedure yesterday. He denies having any pain. OBJECTIVE: Vital Signs: Temperature 98.3 degrees, blood pressure 112/76, heart rate 83, respirations 18, O2 saturation 97% on room air. General: This is a elderly male lying in bed in no acute distress. Heart: S1, S2 normal. Regular rate and rhythm. Lungs: Equal air entry bilaterally. No wheezing, no rales, no rhonchi. Abdomen: Positive bowel sounds. Soft, nontender, nondistended. Extremities: No edema, no cyanosis, no calf tenderness. Neuro: The patient is alert and oriented x3. LABS: White blood cell count 11, hemoglobin 13, hematocrit 40, platelets 130,000. Sodium 143, potassium 4.1, chloride 107, CO2 23, BUN 26, creatinine 1.3, glucose 115, calcium 8.5, AST 17, ALT 16, alkaline phosphatase 55, albumin 3.3. Urine culture is growing gram-negative rods. ASSESSMENT AND PLAN: 1. Sepsis secondary to bilateral renal stones with moderate left hydronephrosis status post cystoscopy with a bilateral double-J stent insertion. The patient is doing much better clinically today. His BUN and creatinine are decreased. His white blood cell count is slightly elevated. He is afebrile. The urine culture is growing gram- negative rods. Will continue on cefepime and IV fluids pending the culture results. Further recommendations to follow from the urologist. 2. Urinary tract infection. The urine culture is growing gram-negative rods. Continue on cefepime. 3. Hypertension. Continue on Coreg. 4. Chronic obstructive pulmonary disease. Stable. Continue with p.r.n. bronchodilator therapy. 5. Prostate adenocarcinoma s/p laparoscopic prostatectomy. Aware. 6. Deep vein thrombosis prophylaxis. Will start the patient on Lovenox. 7. Disposition. Physical therapy has been consulted. cc: Meaghan Mahmood MD MTDD
[2019-06-30] MEDS ORDERED: LOVENOX SUBQ SCH (16:00)
[2019-07-01] MEDS: NS 1,000 ML IV SCH ×2 (05:36→14:37)
[2019-07-01] MEDS: MAXIPIME 1 GM in NS 50 ML IV SCH (05:56)
[2019-07-01] MEDS: PRILOSEC PO SCH ×2 (05:56→07:59)
[2019-07-01 07:34] LABS: BASO# 0.03 X1000 (0.0-0.2); BASO% 0.4 % (0.0-0.8); EOS# 0.27 X1000 (0.0-0.7); EOS% 3.5 % (0.0-10.0); IMM GRAN# 0.02 X1000 (0.0-0.04); IMM GRAN% 0.3 % (0.0-0.5); LYMPH# 1.11 X1000 (1.2-3.4); LYMPH% 14.3 % (20.5-51.1); MCH 31.6 PG (27-31); MCHC 33.3 g/dL (33-37); MCV 94.7 FL (81-99); MONO# 0.91 X1000 (0.11-0.59); MONO% 11.7 % (1.7-9.3); MPV 10.6 FL (7.4-10.4); NEUT# 5.44 X1000 (1.4-6.5); NEUT% 69.8 % (42.2-75.2); PLT 120 X1000 (130-400); RBC 4.12 XMIL (4.7-6.1); RDW 12.4 % (11.5-14.5); WBC 7.78 X1000 (4.8-10.8)
[2019-07-01 08:22] LABS: CALCIUM 8.9 mg/dL (8.8-10.2); CREATININE 1.2 mg/dL (0.7-1.2); POTASSIUM 3.8 mmol/L (3.5-5.1)
[2019-07-01] MEDS: COREG PO SCH (09:42)
[2019-07-01 12:28] VITALS: BP 134/81
[2019-07-01] MEDS ORDERED: KEFLEX PO SCH (15:45)
--- NOTE | 2019-07-02 08:26 | DISCHARGE SUMMARY ---
ADMISSION DATE: 06/29/2019 DISCHARGE DATE: 07/01/2019 DISCHARGE DISPOSITION: Home. DISCHARGE CONDITION: Hemodynamically stable. He denies any more hematuria, nausea, vomiting, or flank pain. His family is at bedside. We discussed about smoking cessation. We discussed about completing antibiotic course and following up with Urology as outpatient. I answered all of his questions. DISCHARGE DIAGNOSES: 1. Sepsis due to bilateral acute pyelonephritis due to obstructive nephropathy. 2. Bilateral renal stones with moderate left-sided hydronephrosis requiring urologic intervention. 3. Acute pyelonephritis due to Klebsiella pneumoniae. 4. Acute kidney injury due to obstructive nephropathy. OTHER DIAGNOSES: 1. History of essential hypertension. 2. History of chronic obstructive pulmonary disease. 3. History of prostatic adenocarcinoma, status post laparoscopic prostatectomy. 4. History of hyperlipidemia. DISCHARGE MEDICATIONS: 1. Carvedilol 6.25 mg b.i.d. 2. Multivitamin 1 tablet daily. 3. Fluticasone inhaler 1 puff inhaled as needed. 4. Atorvastatin 20 mg daily. 5. Losartan 100 mg daily. 6. Amlodipine 5 mg daily. 7. Glucosamine vitamin D3 1 tablet daily. 8. Albuterol sulfate 1 puff inhaled as needed for shortness of breath. 9. Vitamin B12 100 mcg orally daily. 10. Oxybutynin 5 mg t.i.d. as needed for bladder spasm. 11. Keflex 500 mg every 12 hours for 7 days. VITALS: At time of discharge temperature 98.2 degrees, pulse 80, respiratory rate 19, blood pressure 134/81, saturating 98% room air. PHYSICAL EXAMINATION: Mr. Ace was not in acute distress. HEENT: Oral cavity is moist. Lungs: Air entry bilaterally equal. No wheeze or rhonchi. He had mild crackles infrascapular region. Cardiac: S1, S2 normal. No murmur or gallop. Abdomen: Obese, soft. Laparoscopy carlos manuel of recent prostatectomy. Active bowel sounds. Nontender. Extremities: He had mild bilateral lower extremity edema. He had a bowel movement during hospital admission. LABS: At the time of hospital admission discharge WBC 7.7, hemoglobin 13, platelet 120,000. BUN is 23, creatinine 1.2. Microbiology: Urine culture was growing Klebsiella pneumoniae which was sensitive to first-generation cephalosporin. IMAGING: During hospital admission, abdomen and pelvis CT on June 29 had 11 mm stone in the right renal pelvis without any hydronephrosis; 11 mm stone in the left ureteropelvic junction with moderate left hydronephrosis and colonic diverticulosis without any diverticulitis. PROCEDURES DURING HOSPITAL ADMISSION: On 06/29/2019, he underwent cystoscopic exam, bilateral double-J stent placement which he tolerated well. HOSPITAL COURSE SUMMARY: Mr. Ace is a 69-year-old man who presented on 06/29/2019 with chief complaints of fevers, chills, pain in bilateral flank region associated with hematuria. When he presented to the emergency room, he was found to have temperature of 102.4 degrees, pulse of 110, respiratory rate of 18, blood pressure of 167/99. He was started on intravenous fluids, intravenous antibiotics and Urology was consulted for further management. Urology took him for cystoscopic exam and bilateral double-J stent placement, which he tolerated well following which his acute kidney on injury also resolved. His urine culture grew Klebsiella and his intravenous cefepime was changed to oral Keflex to complete a total of 7 to 10 days course of antibiotics. At the time of discharge, he was provided detailed discharge instructions about following up with Urology outpatient. All of his questions were answered. cc: Rober Rice MD
== END 2019-07-01 17:35 | disposition home or self-care (01) | DRG 854 ==
LOC: ED 08:26 → EDIPHOLD 13:31 → SUATTDRO 13:31 → 4N 15:42
PROVIDERS: ATTEND Internal Medicine